=== PATIENT | female | born 1960 | race Caucasian/White ===

== ENCOUNTER 2018-08-04 04:48 | Inpatient (IN) | payer OTHER ==
[~2018-08-04] VITALS: Ht 170.2 cm; Wt 69.1 kg
[2018-08-04] MEDS ORDERED: SODIUM CHLORIDE 0.9% 1,000 ML IV ONE ×2 (05:08→08:01)
[2018-08-04] MEDS ORDERED: CITA10TA8 PO (05:23)
[2018-08-04] MEDS ORDERED: ONDANSETRON 2MG/ML, 2ML IVPush ONE ×2 (05:30→08:30)
[2018-08-04] MEDS ORDERED: SODIUM CHLORIDE 0.9% 1,000ML IVBOLUS ONE ×2 (05:30→07:30)
[2018-08-04] MEDS ORDERED: HYDROmorphone 2 MG/ML, 1ML IVPush PRN (05:30)
[2018-08-04] MEDS ORDERED: SODIUM CHLORIDE FLUSH 10ML SYR IVF ONE (05:30)
[2018-08-04 05:31] LABS: CULTURE INDICATED? YES; MICROSCOPIC INDICATED
[2018-08-04] MEDS ORDERED: ONDANSETRON 2MG/ML, 2ML ONE (05:39)
[2018-08-04] MEDS ORDERED: HYDROmorphone 2 MG/ML, 1ML ONE (05:39)
[2018-08-04 05:45] LABS: MEAN CORPUSCULAR HEMOGLOBIN 23.3 pg (27.0-34.8); MEAN CORPUSCULAR HGB CONC 31.6 g/dL (32.4-35.8); MEAN CORPUSCULAR VOLUME 73.9 fL (80-100); MEAN PLATELET VOLUME 9.6 fL (7.4-10.4); PLATELET COUNT 478 x10^3/uL (130-400); RED BLOOD COUNT 4.82 x10^6/uL (3.82-5.3); RED CELL DISTRIBUTION WIDTH 21.7 % (9.6-15.2)
[2018-08-04 05:50] LABS: ALANINE AMINOTRANSFERASE 761 U/L (12-78); ALBUMIN 4.1 g/dL (3.4-5.0); ANION GAP 18 mmol/L (5-15); CALCIUM 9.7 mg/dL (8.5-10.1); CHLORIDE 107 mmol/L (98-107); CREATININE 1.01 mg/dL (0.55-1.02)
[2018-08-04 05:58] LABS: ALKALINE PHOSPHATASE 405 U/L (45-117); BILIRUBIN,TOTAL 1.2 mg/dL (0.2-1.0); TOTAL PROTEIN 8.6 g/dL (6.4-8.2)
[2018-08-04 06:16] LABS: MD YES
[2018-08-04 06:17] LABS: BAND#(MANUAL) 1.47 x10^3/uL; BANDS%(MANUAL) 8 % (0-7); LYMPH#(MANUAL) 0.55 x10^3/uL (1-3.4); LYMPHS% (MANUAL) 3 % (22-44); MONOS#(MANUAL) 0.74 x10^3/uL (0.3-2.7); MONOS% (MANUAL) 4 % (2-9); SEG#(MANUAL) 15.64 x10^3/uL (1.8-6.8); SEGS% (MANUAL) 85 % (42-75)
[2018-08-04 06:18] LABS: ANISOCYTOSIS 1+; HYPOCHROMIA 1+; MICROCYTOSIS 1+; OVALOCYTES 1+
[2018-08-04 06:20] LABS: <PLATELET ESTIMATE> INCREASED; <PLT MORPHOLOGY> NORMAL PLT MORPH
[2018-08-04] MEDS ORDERED: OMNIPAQUE 350 MG/ML, 100ML BOTTLE ONE (06:38)
[2018-08-04] MEDS ORDERED: VANCOMYCIN PER PHARMACY MC ONE (07:30)
[2018-08-04] MEDS ORDERED: CIPROFLOXACIN/PMX 400MG/200ML 100 ML IVPB ONE (07:30)
[2018-08-04] MEDS ORDERED: VANCOMYCIN 1,200 MG in SODIUM CHLORIDE 0.9% 250 ML IV ONE (07:30)
[2018-08-04] MEDS ORDERED: CIPROFLOXACIN/PMX 400MG/200ML 200 ML ONE (07:32)
[2018-08-04] MEDS ORDERED: ONDANSETRON ODT 4 MG ONE (08:04)
[2018-08-04] MEDS ORDERED: ONDANSETRON 2MG/ML, 2ML IVPush PRN (09:00)
[2018-08-04] MEDS ORDERED: LABETALOL 5MG/ML, 20ML IVPush PRN (09:00)
[2018-08-04] MEDS ORDERED: GLUCAGON 1 MG IM PRN (09:00)
[2018-08-04] MEDS ORDERED: DEXTROSE 4 GM TAB.CHEW PO PRN (09:00)
[2018-08-04] MEDS ORDERED: hydrALAzine 20 MG/ML, 1ML IVPush PRN (09:00)
[2018-08-04] MEDS ORDERED: DEXTROSE 50%, 50ML SYRINGE IVPush PRN (09:00)
[2018-08-04] MEDS ORDERED: DOCUSATE 100 MG CAPSULE PO PRN (09:00)
[2018-08-04] MEDS ORDERED: SODIUM CHLORIDE FLUSH 10ML SYR IVF PRN (09:30)
[2018-08-04 09:33] LABS: THYROID STIMULATING HORMONE 6.45 mIU/L (0.358-3.740)
[2018-08-04] MEDS ORDERED: NAPR-685 PO (09:49)
[2018-08-04 09:50] VITALS: BP 118/69
[2018-08-04] MEDS: ONDANSETRON ODT 4 MG PO PRN ×3 (10:01→19:16)
[2018-08-04] MEDS: SODIUM CHLORIDE FLUSH 10ML SYR IVF SCH ×2 (10:22→20:37)
[2018-08-04 10:38] LABS: HEMOGLOBIN A1C 5.2 % (4.2-6.3)
[2018-08-04] MEDS: INSULIN LISPRO 100 UNITS/ML, PEN SQ-INSULIN SCH ×3 (11:00→20:41)
[2018-08-04 11:21] LABS: MEAN CORPUSCULAR HEMOGLOBIN 23.4 pg (27.0-34.8); MEAN CORPUSCULAR HGB CONC 31.7 g/dL (32.4-35.8); MEAN PLATELET VOLUME 9.3 fL (7.4-10.4); PLATELET COUNT 411 x10^3/uL (130-400); RED BLOOD COUNT 4.45 x10^6/uL (3.82-5.3); RED CELL DISTRIBUTION WIDTH 21.1 % (9.6-15.2)
[2018-08-04 11:29] LABS: ALBUMIN 3.5 g/dL (3.4-5.0); ANION GAP 10 mmol/L (5-15); CALCIUM 8.6 mg/dL (8.5-10.1); CHLORIDE 111 mmol/L (98-107)
[2018-08-04 11:35] LABS: MD YES
[2018-08-04 11:36] LABS: BAND#(MANUAL) 0.86 x10^3/uL; BANDS%(MANUAL) 6 % (0-7); LYMPH#(MANUAL) 0.29 x10^3/uL (1-3.4); LYMPHS% (MANUAL) 2 % (22-44); MONOS#(MANUAL) 0.14 x10^3/uL (0.3-2.7); MONOS% (MANUAL) 1 % (2-9); SEG#(MANUAL) 13.01 x10^3/uL (1.8-6.8); SEGS% (MANUAL) 91 % (42-75)
[2018-08-04 11:37] LABS: <PLATELET ESTIMATE> ADEQUATE; <PLT MORPHOLOGY> NORMAL PLT MORPH; ANISOCYTOSIS 1+; HYPOCHROMIA 1+; MICROCYTOSIS 1+; OVALOCYTES 1+
[2018-08-04 11:39] LABS: ALANINE AMINOTRANSFERASE 1933 U/L (12-78); ALKALINE PHOSPHATASE 521 U/L (45-117); BILIRUBIN,TOTAL 1.3 mg/dL (0.2-1.0); TOTAL PROTEIN 7.6 g/dL (6.4-8.2)
[2018-08-04] MEDS: MORPHINE SULFATE 4 MG/ML, 1ML IVPush PRN ×4 (12:48→22:19)
[2018-08-04 12:55] LABS: AMPHETAMINE SCREEN, URINE Negative (Negative); BARBITURATE SCREEN, URINE Negative (Negative); BENZODIAZEPINE SCREEN, URINE Negative (Negative); CANNABINOID SCREEN, URINE Negative (Negative); COCAINE SCREEN, URINE Negative (Negative); METHADONE SCREEN, URINE Negative (Negative); OPIATE SCREEN, URINE Positive (Negative)
[2018-08-04 12:57] VITALS: BP 125/67
[2018-08-04] MEDS: PIPERACILLIN/TAZO/PMX 3.375GM 50 ML IV SCH ×2 (13:59→21:47)
[2018-08-04] MEDS: SODIUM CHLORIDE 0.9% 1,000 ML IV SCH ×2 (14:34→20:36)
[2018-08-04 19:57] VITALS: BP 123/69
[2018-08-04] MEDS ORDERED: CIPROFLOXACIN/PMX 400MG/200ML 200 ML IV SCH (20:00)
[2018-08-05 02:02] VITALS: BP 130/78
[2018-08-05] MEDS: SODIUM CHLORIDE 0.9% 1,000 ML IV SCH ×4 (02:23→20:48)
[2018-08-05] MEDS: ONDANSETRON ODT 4 MG PO PRN ×3 (02:23→14:56)
[2018-08-05] MEDS: MORPHINE SULFATE 4 MG/ML, 1ML IVPush PRN ×6 (02:23→21:54)
[2018-08-05 05:22] LABS: CHLORIDE 114 mmol/L (98-107)
[2018-08-05] MEDS: PIPERACILLIN/TAZO/PMX 3.375GM 50 ML IV SCH ×3 (05:29→21:53)
[2018-08-05 05:30] LABS: MEAN CORPUSCULAR HEMOGLOBIN 23.6 pg (27.0-34.8); MEAN CORPUSCULAR HGB CONC 31.5 g/dL (32.4-35.8); MEAN PLATELET VOLUME 9.6 fL (7.4-10.4); PLATELET COUNT 421 x10^3/uL (130-400); RED BLOOD COUNT 4.58 x10^6/uL (3.82-5.3); RED CELL DISTRIBUTION WIDTH 21.7 % (9.6-15.2)
[2018-08-05 05:42] LABS: ALANINE AMINOTRANSFERASE 1539 U/L (12-78); ALBUMIN 2.8 g/dL (3.4-5.0); ALKALINE PHOSPHATASE 605 U/L (45-117); ANION GAP 9 mmol/L (5-15); BILIRUBIN,TOTAL 2.9 mg/dL (0.2-1.0); CALCIUM 8.3 mg/dL (8.5-10.1); CREATININE 0.71 mg/dL (0.55-1.02); TOTAL PROTEIN 6.4 g/dL (6.4-8.2)
[2018-08-05 06:21] LABS: MD YES
[2018-08-05 06:24] LABS: BAND#(MANUAL) 3.14 x10^3/uL; BANDS%(MANUAL) 24 % (0-7); LYMPH#(MANUAL) 0.66 x10^3/uL (1-3.4); LYMPHS% (MANUAL) 5 % (22-44); MONOS#(MANUAL) 0.39 x10^3/uL (0.3-2.7); MONOS% (MANUAL) 3 % (2-9); SEG#(MANUAL) 8.91 x10^3/uL (1.8-6.8); SEGS% (MANUAL) 68 % (42-75)
[2018-08-05 06:25] LABS: <PLATELET ESTIMATE> ADEQUATE; ANISOCYTOSIS 1+; HYPOCHROMIA 1+; OVALOCYTES 1+; POLYCHROMASIA 1+; TARGET CELLS 1+
[2018-08-05 06:26] LABS: <PLT MORPHOLOGY> NORMAL PLT MORPH
[2018-08-05] MEDS: INSULIN LISPRO 100 UNITS/ML, PEN SQ-INSULIN SCH ×4 (07:00→20:57)
[2018-08-05 07:25] VITALS: BP 104/64
[2018-08-05] MEDS: SODIUM CHLORIDE FLUSH 10ML SYR IVF SCH ×2 (08:00→20:52)
[2018-08-05] MEDS: ACETYLCYSTEINE 600 MG CAPSULE PO SCH ×2 (11:42→20:52)
[2018-08-05 12:09] VITALS: BP 102/62
[2018-08-05] MEDS ORDERED: FENTANYL PF 250 MCG/5ML ONE (15:42)
[2018-08-05] MEDS ORDERED: MIDAZOLAM 1 MG/ML, 2ML ONE (15:42)
[2018-08-05] MEDS ORDERED: PROPOFOL 10 MG/ML, 20ML ONE (15:42)
[2018-08-05] MEDS ORDERED: ROCURONIUM 10MG/ML,5ML ONE (15:43)
[2018-08-05] MEDS ORDERED: SUCCINYLCHOLINE 20 MG/ML, 10ML ONE (15:43)
[2018-08-05] MEDS ORDERED: NEOSTIGMINE 1 MG/ML, 10ML ONE (15:44)
[2018-08-05] MEDS ORDERED: GLYCOPYRROLATE 0.2MG/1ML, 5ML ONE (15:44)
[2018-08-05] MEDS ORDERED: ONDANSETRON 2MG/ML, 2ML ONE (15:44)
[2018-08-05] MEDS ORDERED: DEXAMETHASONE 4 MG/ML, 1ML ONE ×2 (15:44)
[2018-08-05] MEDS ORDERED: hydrALAzine 20 MG/ML, 1ML IV PRN (16:00)
[2018-08-05] MEDS ORDERED: ONDANSETRON ODT 8 MG PO PRN (16:00)
[2018-08-05] MEDS ORDERED: ACETAMINOPHEN 325 MG TABLET PO PRN (16:00)
[2018-08-05] MEDS ORDERED: PROMETHAZINE 25 MG/ML, 1ML IV PRN (16:00)
[2018-08-05] MEDS ORDERED: FENTANYL PF 100 MCG/2ML IV PRN (16:00)
[2018-08-05] MEDS ORDERED: ONDANSETRON 2MG/ML, 2ML IV PRN (16:00)
[2018-08-05] MEDS ORDERED: MORPHINE SULFATE 4 MG/ML, 1ML IVPush PRN (16:00)
[2018-08-05] MEDS ORDERED: MEPERIDINE/PF 25MG/0.5ML IVPush PRN (16:00)
[2018-08-05] MEDS ORDERED: LABETALOL 5MG/ML, 20ML IV PRN (16:00)
[2018-08-05] MEDS ORDERED: HYDROmorphone 1 MG/ML, 1ML IV PRN (16:00)
[2018-08-05] MEDS ORDERED: PROMETHAZINE 25 MG/ML, 1ML IM PRN ×2 (16:00)
[2018-08-05] MEDS ORDERED: LORazepam 2 MG/ML, 1ML IV PRN (17:30)
[2018-08-05] MEDS ORDERED: ENALAPRILAT 1.25 MG/ML, 2ML IV PRN (17:30)
[2018-08-05] MEDS ORDERED: DIPHENHYDRAMINE 50 MG/ML, 1ML IV PRN (17:30)
[2018-08-05] MEDS ORDERED: OXYcodone 5 MG/5 ML ORAL.SOL UDC ONE (17:42)
[2018-08-05] MEDS ORDERED: FENTANYL PF 100 MCG/2ML ONE (17:42)
[2018-08-05] MEDS: OXYcodone 5 MG/5 ML ORAL.SOL UDC PO PRN (17:44)
[2018-08-05 18:30] VITALS: BP 101/69
[2018-08-05] MEDS: POTASSIUM CHLORIDE 20 MEQ in SODIUM CHLORIDE 0.9% 1,000 ML IV SCH (18:41)
[2018-08-05] MEDS ORDERED: CYCL-259 PO (22:41)
[2018-08-06 00:04] VITALS: BP 97/57
[2018-08-06] MEDS: POTASSIUM CHLORIDE 20 MEQ in SODIUM CHLORIDE 0.9% 1,000 ML IV SCH ×2 (01:59→09:20)
[2018-08-06] MEDS: MORPHINE SULFATE 4 MG/ML, 1ML IVPush PRN ×6 (01:59→23:35)
[2018-08-06] MEDS: SODIUM CHLORIDE 0.9% 1,000 ML IV SCH ×2 (02:00→07:00)
[2018-08-06 04:00] VITALS: BP 95/55
[2018-08-06 04:58] LABS: MEAN CORPUSCULAR HEMOGLOBIN 23.8 pg (27.0-34.8); MEAN CORPUSCULAR VOLUME 74.4 fL (80-100); MEAN PLATELET VOLUME 9.8 fL (7.4-10.4); PLATELET COUNT 337 x10^3/uL (130-400); RED BLOOD COUNT 3.56 x10^6/uL (3.82-5.3); RED CELL DISTRIBUTION WIDTH 21.4 % (9.6-15.2)
[2018-08-06 05:09] LABS: CHLORIDE 118 mmol/L (98-107)
[2018-08-06] MEDS: PIPERACILLIN/TAZO/PMX 3.375GM 50 ML IV SCH ×3 (05:15→22:33)
[2018-08-06 05:16] LABS: ALANINE AMINOTRANSFERASE 851 U/L (12-78); ALBUMIN 2.2 g/dL (3.4-5.0); ALKALINE PHOSPHATASE 393 U/L (45-117); ANION GAP 7 mmol/L (5-15); BILIRUBIN,TOTAL 1.1 mg/dL (0.2-1.0); CREATININE 0.44 mg/dL (0.55-1.02); TOTAL PROTEIN 5.3 g/dL (6.4-8.2)
[2018-08-06 05:17] LABS: MD YES
[2018-08-06 05:21] LABS: BAND#(MANUAL) 0.27 x10^3/uL; BANDS%(MANUAL) 5 % (0-7); EOS#(MANUAL) 0.05 x10^3/uL (0.0-0.4); EOS% (MANUAL) 1 % (1-7); LYMPH#(MANUAL) 1.13 x10^3/uL (1-3.4); LYMPHS% (MANUAL) 21 % (22-44); MONOS#(MANUAL) 0.11 x10^3/uL (0.3-2.7); MONOS% (MANUAL) 2 % (2-9); SEG#(MANUAL) 3.83 x10^3/uL (1.8-6.8); SEGS% (MANUAL) 71 % (42-75)
[2018-08-06 05:22] LABS: <PLATELET ESTIMATE> ADEQUATE; <PLT MORPHOLOGY> NORMAL PLT MORPH; ANISOCYTOSIS 1+; HYPOCHROMIA 1+; OVALOCYTES 1+; POLYCHROMASIA 1+
[2018-08-06 07:00] VITALS: BP 99/50
[2018-08-06] MEDS: INSULIN LISPRO 100 UNITS/ML, PEN SQ-INSULIN SCH (07:00)
[2018-08-06] MEDS: ACETYLCYSTEINE 600 MG CAPSULE PO SCH (08:16)
[2018-08-06] MEDS: ENOXAPARIN 40 MG/0.4 ML SQ SCH (08:16)
[2018-08-06] MEDS: SODIUM CHLORIDE FLUSH 10ML SYR IVF SCH ×2 (08:17→20:33)
[2018-08-06 09:07] LABS: ALBUMIN 2.2 g/dL (3.4-5.0); ANION GAP 5 mmol/L (5-15); CALCIUM 7.8 mg/dL (8.5-10.1); CHLORIDE 117 mmol/L (98-107)
[2018-08-06 09:10] LABS: ALANINE AMINOTRANSFERASE 745 U/L (12-78); ALKALINE PHOSPHATASE 372 U/L (45-117); CREATININE 0.49 mg/dL (0.55-1.02); TOTAL PROTEIN 5.3 g/dL (6.4-8.2)
[2018-08-06] MEDS ORDERED: SODIUM CHLORIDE 0.45% 1,000 ML IV SCH (11:00)
[2018-08-06] MEDS: CITALOPRAM 20 MG TABLET PO SCH (11:13)
[2018-08-06] MEDS: SODIUM CHLORIDE 0.45% 1,000 ML IV SCH ×2 (11:14→19:00)
[2018-08-06 12:14] VITALS: BP 97/52
[2018-08-06 19:06] VITALS: BP 107/65
[2018-08-06 20:22] VITALS: BP 99/66
[2018-08-07] VITALS: BP 98/68
[2018-08-07 04:00] VITALS: BP 104/64
[2018-08-07] MEDS: MORPHINE SULFATE 4 MG/ML, 1ML IVPush PRN (04:25)
[2018-08-07 04:33] LABS: BASOPHILS # (AUTO) 0.02 x10^3/uL (0-0.1); BASOPHILS % (AUTO) 0 % (0-1); EOSINOPHILS # (AUTO) 0.07 x10^3/uL (0-0.4); EOSINOPHILS % (AUTO) 2 % (1-7); LYMPHOCYTES # (AUTO) 1.23 x10^3/uL (1-3.4); LYMPHOCYTES % (AUTO) 29 % (22-44); MD NO; MEAN CORPUSCULAR HEMOGLOBIN 23.4 pg (27.0-34.8); MEAN CORPUSCULAR HGB CONC 31.2 g/dL (32.4-35.8); MEAN CORPUSCULAR VOLUME 74.8 fL (80-100); MEAN PLATELET VOLUME 9.4 fL (7.4-10.4); MONOCYTES # (AUTO) 0.63 x10^3/uL (0.2-0.8); MONOCYTES % (AUTO) 15 % (2-9); NEUTROPHILS # (AUTO) 2.35 x10^3/uL (1.8-6.8); NEUTROPHILS % (AUTO) 55 % (42-75); PLATELET COUNT 279 x10^3/uL (130-400); RED CELL DISTRIBUTION WIDTH 20.5 % (9.6-15.2)
[2018-08-07 04:45] LABS: ALBUMIN 2.1 g/dL (3.4-5.0); ANION GAP 6 mmol/L (5-15); CALCIUM 7.8 mg/dL (8.5-10.1); CHLORIDE 111 mmol/L (98-107)
[2018-08-07 04:51] LABS: ALANINE AMINOTRANSFERASE 555 U/L (12-78); ALKALINE PHOSPHATASE 282 U/L (45-117); BILIRUBIN,TOTAL 0.6 mg/dL (0.2-1.0); CREATININE 0.47 mg/dL (0.55-1.02); TOTAL PROTEIN 5.2 g/dL (6.4-8.2)
[2018-08-07] MEDS: PIPERACILLIN/TAZO/PMX 3.375GM 50 ML IV SCH ×2 (05:40→15:09)
[2018-08-07 06:58] VITALS: BP 106/66
[2018-08-07 07:58] LABS: ABSOLUTE RETICS # 0.03 x10^6/uL (0.5-2.5); RED BLOOD COUNT 3.22 x10^6/uL (3.82-5.3); RETICULOCYTE COUNT % 0.92 % (0.5-1.5)
[2018-08-07] MEDS: SODIUM CHLORIDE FLUSH 10ML SYR IVF SCH ×2 (09:00→20:11)
[2018-08-07] MEDS ORDERED: CITALOPRAM 20 MG TABLET PO SCH (09:00)
[2018-08-07] MEDS: OXYcodone 5 MG/5 ML ORAL.SOL UDC PO PRN ×2 (09:19→17:30)
[2018-08-07] MEDS: ENOXAPARIN 40 MG/0.4 ML SQ SCH (09:19)
[2018-08-07] MEDS: CITALOPRAM 20 MG TABLET PO SCH (09:19)
[2018-08-07] MEDS: IBUPROFEN 200 MG TABLET PO PRN ×2 (11:40→20:11)
[2018-08-07 12:29] VITALS: BP 95/60
[2018-08-07 18:11] VITALS: BP 93/52
[2018-08-07 20:00] VITALS: BP 93/50
[2018-08-08] MEDS: OXYcodone 5 MG/5 ML ORAL.SOL UDC PO PRN ×3 (00:07→17:41)
[2018-08-08 02:00] VITALS: BP 110/68
[2018-08-08] MEDS: IBUPROFEN 200 MG TABLET PO PRN ×3 (04:28→22:38)
[2018-08-08] MEDS: PIPERACILLIN/TAZO/PMX 3.375GM 50 ML IV SCH ×4 (04:28→22:38)
[2018-08-08 05:44] LABS: CHLORIDE 109 mmol/L (98-107)
[2018-08-08 05:54] LABS: BASOPHILS # (AUTO) 0.01 x10^3/uL (0-0.1); BASOPHILS % (AUTO) 0 % (0-1); EOSINOPHILS # (AUTO) 0.15 x10^3/uL (0-0.4); EOSINOPHILS % (AUTO) 4 % (1-7); LYMPHOCYTES # (AUTO) 0.94 x10^3/uL (1-3.4); LYMPHOCYTES % (AUTO) 21 % (22-44); MD NO; MEAN CORPUSCULAR HEMOGLOBIN 23.1 pg (27.0-34.8); MEAN CORPUSCULAR HGB CONC 30.9 g/dL (32.4-35.8); MEAN CORPUSCULAR VOLUME 74.8 fL (80-100); MEAN PLATELET VOLUME 9.5 fL (7.4-10.4); MONOCYTES # (AUTO) 0.52 x10^3/uL (0.2-0.8); MONOCYTES % (AUTO) 12 % (2-9); NEUTROPHILS # (AUTO) 2.79 x10^3/uL (1.8-6.8); NEUTROPHILS % (AUTO) 63 % (42-75); PLATELET COUNT 304 x10^3/uL (130-400); RED BLOOD COUNT 3.38 x10^6/uL (3.82-5.3); RED CELL DISTRIBUTION WIDTH 21.4 % (9.6-15.2)
[2018-08-08 06:05] LABS: ANION GAP 7 mmol/L (5-15); CALCIUM 8.3 mg/dL (8.5-10.1); CREATININE 0.43 mg/dL (0.55-1.02)
[2018-08-08 08:05] VITALS: BP 122/83
[2018-08-08 08:17] VITALS: BP 100/58
[2018-08-08] MEDS: SODIUM CHLORIDE FLUSH 10ML SYR IVF SCH ×2 (09:00→22:38)
[2018-08-08] MEDS: ENOXAPARIN 40 MG/0.4 ML SQ SCH (09:13)
[2018-08-08] MEDS: CITALOPRAM 20 MG TABLET PO SCH (09:13)
[2018-08-08 10:39] LABS: ALBUMIN 2.3 g/dL (3.4-5.0); BILIRUBIN, DIRECT 0.2 mg/dL (0.1-0.2)
[2018-08-08 10:41] LABS: BILIRUBIN,INDIRECT 0.3 mg/dL (0.0-2.0); BILIRUBIN,TOTAL 0.5 mg/dL (0.2-1.0); TOTAL PROTEIN 5.7 g/dL (6.4-8.2)
[2018-08-08 13:19] VITALS: BP 108/70
[2018-08-08 19:09] VITALS: BP 98/61
[2018-08-09 01:47] VITALS: BP 100/65
[2018-08-09] MEDS: OXYcodone 5 MG/5 ML ORAL.SOL UDC PO PRN ×3 (04:45→21:43)
[2018-08-09] MEDS: PIPERACILLIN/TAZO/PMX 3.375GM 50 ML IV SCH ×3 (05:58→22:28)
[2018-08-09 07:43] VITALS: BP 110/68
[2018-08-09] MEDS: CITALOPRAM 20 MG TABLET PO SCH (08:48)
[2018-08-09] MEDS: ENOXAPARIN 40 MG/0.4 ML SQ SCH (08:52)
[2018-08-09] MEDS: SODIUM CHLORIDE FLUSH 10ML SYR IVF SCH ×2 (08:52→21:43)
[2018-08-09] MEDS: IBUPROFEN 200 MG TABLET PO PRN ×2 (08:52→17:34)
[2018-08-09 09:29] LABS: ALANINE AMINOTRANSFERASE 305 U/L (12-78); ALBUMIN 2.4 g/dL (3.4-5.0); ANION GAP 6 mmol/L (5-15); CALCIUM 8.2 mg/dL (8.5-10.1); CHLORIDE 108 mmol/L (98-107); CREATININE 0.62 mg/dL (0.55-1.02)
[2018-08-09 09:31] LABS: ALKALINE PHOSPHATASE 257 U/L (45-117); BILIRUBIN,TOTAL 0.5 mg/dL (0.2-1.0)
[2018-08-09 09:40] LABS: BASOPHILS % (AUTO) 0 % (0-1); EOSINOPHILS # (AUTO) 0.32 x10^3/uL (0-0.4); EOSINOPHILS % (AUTO) 5 % (1-7); LYMPHOCYTES # (AUTO) 0.74 x10^3/uL (1-3.4); LYMPHOCYTES % (AUTO) 11 % (22-44); MD SCAN; MEAN CORPUSCULAR HEMOGLOBIN 24.2 pg (27.0-34.8); MEAN CORPUSCULAR HGB CONC 32.5 g/dL (32.4-35.8); MEAN CORPUSCULAR VOLUME 74.5 fL (80-100); MEAN PLATELET VOLUME 9.3 fL (7.4-10.4); MONOCYTES # (AUTO) 0.69 x10^3/uL (0.2-0.8); MONOCYTES % (AUTO) 10 % (2-9); NEUTROPHILS # (AUTO) 4.93 x10^3/uL (1.8-6.8); NEUTROPHILS % (AUTO) 74 % (42-75); PLATELET COUNT 353 x10^3/uL (130-400); RED BLOOD COUNT 3.55 x10^6/uL (3.82-5.3); RED CELL DISTRIBUTION WIDTH 20.5 % (9.6-15.2)
[2018-08-09 14:10] VITALS: BP 105/68
[2018-08-09 18:54] VITALS: BP 114/71
[2018-08-10 02:04] VITALS: BP 109/61
[2018-08-10 05:12] LABS: MEAN CORPUSCULAR HEMOGLOBIN 23.7 pg (27.0-34.8); MEAN CORPUSCULAR HGB CONC 31.7 g/dL (32.4-35.8); MEAN CORPUSCULAR VOLUME 74.6 fL (80-100); MEAN PLATELET VOLUME 9.3 fL (7.4-10.4); PLATELET COUNT 337 x10^3/uL (130-400); RED BLOOD COUNT 3.31 x10^6/uL (3.82-5.3); RED CELL DISTRIBUTION WIDTH 21.4 % (9.6-15.2)
[2018-08-10 05:17] LABS: ALBUMIN 2.2 g/dL (3.4-5.0); ANION GAP 7 mmol/L (5-15); CALCIUM 7.7 mg/dL (8.5-10.1); CHLORIDE 109 mmol/L (98-107)
[2018-08-10 05:20] LABS: ALANINE AMINOTRANSFERASE 222 U/L (12-78); ALKALINE PHOSPHATASE 224 U/L (45-117); BILIRUBIN,TOTAL 0.4 mg/dL (0.2-1.0); CREATININE 0.45 mg/dL (0.55-1.02); TOTAL PROTEIN 5.5 g/dL (6.4-8.2)
[2018-08-10 05:39] LABS: BASOPHILS % (AUTO) 0 % (0-1); EOSINOPHILS # (AUTO) 0.42 x10^3/uL (0-0.4); EOSINOPHILS % (AUTO) 6 % (1-7); LYMPHOCYTES # (AUTO) 1.51 x10^3/uL (1-3.4); LYMPHOCYTES % (AUTO) 21 % (22-44); MD SCAN; MONOCYTES # (AUTO) 0.76 x10^3/uL (0.2-0.8); MONOCYTES % (AUTO) 11 % (2-9); NEUTROPHILS # (AUTO) 4.55 x10^3/uL (1.8-6.8); NEUTROPHILS % (AUTO) 63 % (42-75)
[2018-08-10] MEDS: PIPERACILLIN/TAZO/PMX 3.375GM 50 ML IV SCH (06:03)
[2018-08-10] MEDS: OXYcodone 5 MG/5 ML ORAL.SOL UDC PO PRN ×2 (06:11→22:12)
[2018-08-10 08:43] VITALS: BP 110/59
[2018-08-10] MEDS: ENOXAPARIN 40 MG/0.4 ML SQ SCH (08:47)
[2018-08-10] MEDS: CITALOPRAM 20 MG TABLET PO SCH (08:47)
[2018-08-10] MEDS: SODIUM CHLORIDE FLUSH 10ML SYR IVF SCH ×2 (08:48→20:03)
[2018-08-10] MEDS: IBUPROFEN 200 MG TABLET PO PRN ×2 (11:49→20:03)
[2018-08-10 14:52] VITALS: BP 124/75
[2018-08-10 19:54] VITALS: BP 111/68
[2018-08-11 02:43] VITALS: BP 121/87
[2018-08-11] MEDS: IBUPROFEN 200 MG TABLET PO PRN ×2 (05:56→13:53)
[2018-08-11 06:03] LABS: FREE T4 (FREE THYROXINE) 1.54 ng/dL (0.76-1.46); THYROID STIMULATING HORMONE 3.6 mIU/L (0.358-3.740)
[2018-08-11] MEDS ORDERED: IBUP-1484 PO (07:44)
[2018-08-11] MEDS ORDERED: DOCU-131 PO (07:44)
[2018-08-11] MEDS ORDERED: ONDA4TAB13 PO (07:44)
[2018-08-11] MEDS ORDERED: OXYC5CAP2 PO (07:44)
[2018-08-11] MEDS ORDERED: CITA10TA8 PO (07:44)
[2018-08-11] MEDS ORDERED: FERR325T18 PO (07:47)
[2018-08-11 07:55] VITALS: BP 115/74
[2018-08-11] MEDS: ENOXAPARIN 40 MG/0.4 ML SQ SCH (08:00)
[2018-08-11] MEDS: SODIUM CHLORIDE FLUSH 10ML SYR IVF SCH (09:00)
[2018-08-11] MEDS: CITALOPRAM 20 MG TABLET PO SCH (09:30)
[2018-08-11] MEDS: OXYcodone 5 MG/5 ML ORAL.SOL UDC PO PRN (11:01)
[2018-08-11 13:10] VITALS: BP 97/63
== END 2018-08-11 14:32 | disposition home or self-care (01) | DRG 853 ==
LOC: ED 06:10 → EDIP 08:01 → 4WST 09:36
PROVIDERS: ADMIT Internal Medicine; ATTEND Internal Medicine
PROC: 0DN80ZZ Release Small Intestine, Open Approach (ICD-10-PCS; principal; 2018-08-05 16:00)
DX: A41.9 Sepsis, unspecified organism (principal); K72.00 Acute and subacute hepatic failure without coma; K85.90 Acute pancreatitis without necrosis or infection, unspecified; B17.9 Acute viral hepatitis, unspecified; K56.52 Intestinal adhesions [bands] with complete obstruction; K56.7 Ileus, unspecified; N10 Acute pyelonephritis; R18.8 Other ascites; K90.9 Intestinal malabsorption, unspecified; D50.9 Iron deficiency anemia, unspecified; E87.6 Hypokalemia; E88.09 Other disorders of plasma-protein metabolism, not elsewhere classified; F17.210 Nicotine dependence, cigarettes, uncomplicated; F32.9 Major depressive disorder, single episode, unspecified; G47.33 Obstructive sleep apnea (adult) (pediatric); J44.9 Chronic obstructive pulmonary disease, unspecified; R11.2 Nausea with vomiting, unspecified; D73.89 Other diseases of spleen; R73.9 Hyperglycemia, unspecified; E66.01 Morbid (severe) obesity due to excess calories; R65.20 Severe sepsis without septic shock; Z90.49 Acquired absence of other specified parts of digestive tract; Z98.84 Bariatric surgery status; Z68.23 Body mass index [BMI] 23.0-23.9, adult
CPT/HCPCS: 36415; 36600; 99285; J3490; 71045; 74177; 74181; 80048; 80053; 80074; 80076; 80307; 81001; 82728; 82787; 82803; 82962; 83036; 83540; 83550; 83605; 83690; 83735; 84100; 84439; 84443; 84478; 84481; 85025; 85045; 86140; 87040; 87086; 93005; 96361; 96374; 96375; G0378; J0744; J1100; J1170; J1650; J2250; J2405; J2543; J2704; J2710; J3010; J3370; J3480; Q0162; Q9967; C1765; J0330; J1815; J7030; J7050